=== PATIENT | female | born 1960 | race Caucasian/White ===

== ENCOUNTER 2022-07-08 11:30 | Outpatient (CLI) | payer BC, SELFPAY ==
--- NOTE | 2022-07-08 10:45 | DI.RAD_ITS ---
Exam(s) XR KNEE RT 3V AP,LAT,SHIRNI EXAM: XR KNEE RT 3V AP,LAT,SHIRIN CLINICAL HISTORY: RIGHT KNEE PAIN. TECHNIQUE: 2D digital imaging was performed of the right knee. Three views obtained. Merchant, AP an d lateral views were obtained. COMPARISON: No exams were available for comparison FINDINGS: BONES: No acute fracture is present. No bony destructive lesion is seen. JOINTS: The knee is normally aligned. No joint effusion is seen. SOFT TISSUE: Normal. IMPRESSION: Unremarkable radiographs of the right knee. DATA REPOSITORY: RADIATION DOSE DELIVERED:
== END 2022-07-08 11:31 | disposition home or self-care (01) ==
LOC: DIORS 11:30
PROVIDERS: PCP Physician Assistant Medical; Referring Provider Physician Assistant Medical; Visit Provider Student in an Organized Health Care Education/Training Program
DX: M25.561 Pain in right knee (principal)
CPT/HCPCS: 73562

== ENCOUNTER 2022-07-16 03:37 | Outpatient (CLI) | payer BC, SELFPAY ==
--- NOTE | 2022-07-16 07:30 | DI.MRI_ITS ---
Exam(s) MR LOWER JOINT RT WO EXAM: MR LOWER JOINT RT WO CLINICAL HISTORY: R KNEE INJURY,RT ACL TEAR,S83.511A,S83.411A. TECHNIQUE: Multiplanar multisequence MRI was performed. COMPARISON: CR XR KNEE RT 3V AP,LAT,SHIRIN from 07/08/2022 FINDINGS: BONES: Mild marrow edema seen in both the medial and lateral femoral condyles and the lateral proxima l tibia. There is a small depression in the lateral tibial plateau posteriorly with marrow edema robert picious for a mildly depressed tibial plateau fracture. JOINTS: Articular cartilage is unremarkable. No effusion is present. TENDONS: Extensor mechanism: Unremarkable. Medial retinaculum: There is thickening and hyperintense signal seen in the attachment site of the me dial retinaculum suspicious for tear. Lateral retinaculum: Unremarkable. Popliteus: Unremarkable. MUSCLES: Unremarkable. MENISCI: The medial meniscus is unremarkable. The lateral meniscus is unremarkable. SOFT TISSUES: There is edema seen in the soft tissues around the knee. There is a popliteal cyst pre sent. LIGAMENTS: Anterior Cruciate: There is an anterior cruciate ligament tear. Posterior Cruciate: There is also a posterior cruciate ligament tear. Medial Collateral:There is a tear of the proximal medial collateral ligament. Lateral Collateral: There is thickening of the proximal lateral collateral ligament suggesting a tear versus sprain. OTHER: IMPRESSION: 1. Findings suspicious for a small posterior lateral tibial plateau fracture with associated edema. 2. Contusions involving both the medial lateral femoral condyle and the proximal tibia. 3. Anterior and posterior cruciate ligament tears. 4. Tear of the proximal medial collateral ligament and the medial retinaculum. 5. Tear versus sprain of the proximal lateral collateral ligament. 6. Joint effusion, popliteal cyst and subcutaneous edema. DATA REPOSITORY:
== END 2022-07-16 03:57 ==
LOC: DI 03:37
PROVIDERS: PCP Physician Assistant Medical; Visit Provider Student in an Organized Health Care Education/Training Program
DX: S83.511A Sprain of anterior cruciate ligament of right knee, initial encounter (principal); S83.411A Sprain of medial collateral ligament of right knee, initial encounter; M71.21 Synovial cyst of popliteal space [Baker], right knee; S83.521A Sprain of posterior cruciate ligament of right knee, initial encounter; S83.421A Sprain of lateral collateral ligament of right knee, initial encounter; M25.461 Effusion, right knee; M21.861 Other specified acquired deformities of right lower leg
CPT/HCPCS: 73721

== ENCOUNTER 2022-08-07 07:14 | Day surgery (SDC) | payer BC, SELFPAY ==
[2022-08-07] VITALS (13 sets, daily range): BP systolic 97–121; BP diastolic 54–76; PULSE 70–86; RESP 7–18; TEMP 36.5–37.2; O2SAT 92–100; BMI 21.2
--- NOTE | 2022-08-07 07:10 | W.PM.DSUDISC ---
Date of service: 08/07/22 Time of Service: 17:00 Discharge Plan Discharge Details Attending Provider: Evelio Love Primary Care Provider: Kezia Pierson Home Meds and New Rx's Prescriptions: New aspirin 81 mg tablet,delayed release (DR/EC) 81 mg PO BID 30 Days Qty: 60 0RF naproxen 250 mg tablet 250 - 500 mg PO BID PRNQty: 40 0RF Rx Instructions: take with a meal oxycodone 5 mg tablet 5 - 10 mg PO Q4H MDD 30 mg PRN (Reason: moderate to severe pain) Qty: 18 0RF Continued rosuvastatin 5 mg tablet 5 mg PO HS venlafaxine 150 mg capsule,extended release 24hr 150 mg PO HS valacyclovir 500 mg tablet 500 mg PO HS cholecalciferol (vitamin D3) [Vitamin D3] 125 mcg (5,000 unit) Tablet 5,000 unit PO DAILY Discharge Instructions Additional Instructions: Surgery: Right knee arthroscopy with allograft ACL reconstruction, allograft PCL reconstruction, and proximal MCL repair Activity: Protected weightbearing in full extension-only for 6 weeks. Use crutches and brace as needed to protect and maintain knee straight. Restore full knee extension as soon as possible. Encourage quadriceps isometrics. Ankle pumps and wiggle toes to increase circulation. Flexion 0-90 degrees maximum for 6 weeks: seated passive flexion, avoid hamstring activation and posterior drawer force; prone active flexion okay. 120 degrees maximum flexion for 8 weeks. Low-resistance spin/bike after 10 weeks. Closed?chain strengthening at 12 weeks. A physical therapy prescription will be sent electronically to start in about 2 weeks Prescriptions: Aspirin 81 mg take 1 twice daily to prevent a blood clot for 30 days Naproxen 250 mg take 1-2 every 12 hours with a meal as needed for moderate pain Oxycodone 5 mg take 1-2 every 4-6 hours as needed for severe pain You may use [id number] Tylenol (acetaminophen) as needed for mild pain. These pain medications may be taken all at once or in different combinations as needed. Also, recommend Colace (docusate) as a stool softener as surgery and pain medicine cause constipation. You may try [id number] diphenhydramine (Benadryl) 25-50 mg nightly as a sleep aid Dressings: Leave dressing in place for 5 days. May then remove and leave open to air or cover incisions with Band-Aids. Leave the sticky Steri-Strips in place until they fall off or remove them after you shower. You will have to tighten the Velcro brace straps once the bulky dressing is removed. We are happy to do this with you if needed. May shower after 7 days. Follow-up: 10-[address] Love You may take off the leg compression stockings this evening at home. You may also leave them on a few days longer if you have a history of leg swelling or edema. Let us know right away if you develop any redness, drainage, fevers, chest pain, or trouble breathing. Do not drink alcohol or drive for at least 24 hours after anesthesia. Please call the office during business hours with any questions or concerns. DS: Diagnosis Discharge Diagnosis (1) Tear of medial collateral ligament of right knee: Status: Acute (2) Right ACL tear: Status: Acute (3) Rupture of posterior cruciate ligament of right knee: Status: Acute
--- NOTE | 2022-08-07 07:13 | W.PM.OP ---
Date of service: 08/07/22 Time of Service: 10:00 Operative Note Operative Note DATE OF PROCEDURE: 08/07/22 PRE-OP DIAGNOSIS: Right knee: 1. Complete midsubstance ACL rupture 2. Complete midsubstance PCL rupture 3. Complete proximal MCL tear PROCEDURE: Right knee: 1. ACL reconstruction, CPT #49824: Quadriceps allograft 2. PCL reconstruction, CPT #18378: GraftLink allograft 3. Proximal MCL repair, CPT #96727 SURGEON: Evelio Love MANUFACTURING ENGINEER CHIEF: Lissette Newman ANESTHESIA TYPE: Local By Surgeon, General LMA/ETT and Primary Nerve Block Refer to Anesthesia Record ESTIMATED BLOOD LOSS: 10 TOURNIQUET TIME: 0 COMPLICATIONS: None Patient was transported to: PACU Patient's condition: stable Implants: Arthrex TightRope II RT x2 and ABS with 8x12 mm cortical button x2 for ACL and PCL QuadLink pre-sutured quadriceps allograft: 10 x70 mm GraftLink pre-sutured allograft: 11 x90 mm Arthrex 5.5 mm SwiveLock for MCL Indications: Please see complete medical record for details. Findings: Exam under anesthesia: Full range of motion, stable valgus stress flexion extension; grossly positive Johanna, reverse Johanna, anterior drawer, and posterior drawer. Moderately positive valgus stress in flexion and extension. Arthroscopic findings: Complete, mid substance ACL and PCL ruptures. Significant tibial PCL and ACL remnants. Intact medial and lateral menisci. Mild medial femoral condyle medial tibial plateau diffuse chondromalacia. Procedure Description: In the operating room, general anesthesia was induced. The patient was positioned supine on the operating room table. All bony prominences were well-padded. Preoperative antibiotics were administered. The knee was prepped and draped in the usual sterile fashion. The correct patient, procedure, and side of the procedure were all verified prior to incision. Exam under anesthesia was performed. 15 cc of bupivacaine containing epinephrine was infiltrated about the planned anteromedial, anterolateral, lateral distal femoral, medial, and pretibial surgery sites. The standard high and tight anterolateral and anteromedial portals were established and a complete diagnostic arthroscopy was performed with relevant findings detailed above. A passport cannula was inserted in both the anteromedial and anterolateral portals. Under direct visualization through the notch, a posterior medial portal was established an additional passport cannula placed here. The allografts were sized, placed under moist vancomycin sponges, and dimensions noted for socket creation. The menisci and meniscal roots were intact. In the intercondylar area, the ACL and PCL remnants were removed leaving enough footprint on the femur and tibia to localize anatomic socket placement. Working through the intercondylar area from anterior to posterior knee ACL and PCL remnants were resected and significant caretaking while working more posteriorly with the knee in flexion exposing the posterior tibial plateau insertion of the PCL. Care was taken to avoid the meniscal roots. Alternating working and viewing from posterior medial and anteriorly through the notch the PCL footprint was exposed. The 30 degree scope was then changed for the 70 degree arthroscope for PCL tibial socket creation. The PCL tibial drill guide was then placed through the anterior medial portal centrally between the mamillary bodies and posteriorly appropriate hooking the posterior tibial plateau. Appropriate position was confirmed using lateral fluoroscopy. A distal pretibial small incision was made and the drill guide secured. The flip cutter was then drilled carefully exiting at the appropriate location and using the drill guide for protection of neurovascular structures posteriorly. Additional soft tissue was elevated and cleared around this tibial PCL socket to aid in visualization and future graft passage. A Yin was placed through the posterior medial portal to protect the posterior neurovascular structures. The flip cutter was deployed to 11 mm and retrograde drilling done to a depth of almost 45 mm. The reamings were removed with the mechanical shaver and a fiber stick used to place a #2 FiberWire shuttle stitch. The PCL femoral guide was then placed through the anteromedial portal and is centered over the appropriate location high and tight to the cartilage on the medial wall. A small proximal medial incision was made and the drill guide secured. The flip cutter was then drilled to the planned target, deployed to 11 mm, confirmed to be appropriate location, and retrograde drilling done just past 20mm. The fiber stick was then used to place an additional #2 FiberWire shuttle stitch. Attention was then turned to the ACL: The femoral 69 guide was then placed through the anterolateral portal carefully targeting the appropriate anatomic ACL origin. The outer 9 mm diameter of the guide was positioned anatomically with appropriate space between the proximal and posterior articular margins. On the lateral thigh, drill guide position and angle adjusted to about 60 degree angle to the longitudinal axis of the femur in the coronal plane and 20 degree angle to the trans-epicondylar axis in the axial plane to create the most optimal femoral socket. Knife and snap were used to open the skin and IT band and placed the drill guide on bone while maintaining appropriate position on the lateral wall. The tunnel length was noted to be used for marking and passing the femoral button. The flip cutter was then drilled to the appropriate location. The drill guide malleted 7 mm into the cortex. The remainder of the targeting guide removed. The FlipCutter was deployed to 10 mm and retrograde reaming done to a depth of 25mm. Bony debris was removed with the shaver. The flip cutter was then closed, withdrawn, and a FiberStick used to pass a #2 FiberWire shuttle stitch, which was withdrawn out the anterolateral portal. The tibial guide was then used to target the anatomic ACL insertion through the anteromedial portal. The drill angle adjusted to 55 degrees and a pretibial incision made taking care to keep a soft tissue and bony bridge between the tibial PCL and ACL tunnels. The drill guide was placed on bone, tunnel length noted, and the flip cutter drilled to the appropriate location. The drill guide malleted 7 mm into the cortex. The remainder of the targeting guide removed. The FlipCutter was deployed to 10mm and retrograde reaming done to a depth of 35mm. Bony debris was removed with the shaver. The flip cutter was then closed, withdrawn, and a FiberStick used to pass a #2 FiberWire shuttle stitch, which was withdrawn out the anteromedial portal. The mechanical shaver was used to remove bone debris as well as chamfer and remove soft tissue from the edges of the sockets. The allografts were then prepared on the back table. The TightRope II BTB and TightRope II ABS adjustable-loop cortical suspensory fixation implants were loaded on both the GraftLink presutured PCL allograft and the QuadLink pre-sutured quadriceps allograft. The grafts were marked at 20 mm from each end to ensure minimal tissue and sockets. On the ABS sides, the tensioning sutures were marked and a shuttle suture was added. The grafts were manually tensioned and the constructs did not demonstrate any elongation. The PCL allograft was then tightly compressed in a 10 mm graft tube and the ACL allograft tightly in a 9 mm graft tube. Starting with the PCL, the tibial and femoral shuttling sutures were withdrawn out the anterior medial portal. The ACL shuttle sutures were withdrawn out the anterior lateral portal. The anterior medial passport was removed, portal dilated, and care taken to ensure correct shuttle suture orientation and no tissue bridge. The PCL graft was brought over to the knee. The tibial suture shuttled under visualization through the notch, made the turn, and out the anterior leg. The shuttle link was removed and the graft was readily dunked into the posterior tibial socket with pressure through the ABS loop. The graft thoroughly drawn into the tibial socket to aid in femoral passage. The femoral sutures and button were then shuttled under direct visualization into the medial femoral socket. The button was flipped at the correct depth. Back pressure was maintained with the length and sutures out the portal and then with a probe on the graft while the tensioning sutures were used to deliver the other end of the graft into the socket. The graft was brought fully seated past 20 mm into the femoral socket. Provisionally tensioned on the side. The femoral button was maintained on the cortex throughout. An 8x12 mm ABS button was then loaded to the ABS loop and tension sutures used to bring the cortical button down to bone. The tibial side was then provisionally tensioned. Next, the remaining shuttle sutures were brought out the anterior medial portal. The ACL graft was brought over to the knee and the femoral sutures shuttled out the lateral thigh and advanced until the button was near the far cortex. Under arthroscopic visualization with the knee slightly hyperflexed, and the button was then passed and flipped on the far cortex. Counter traction was then maintained on the tibial side of the graft while it was carefully advanced into the knee and then about 20 mm into the femoral socket. The tibial sutures were then shuttled through the tibial tunnel and passing stitch removed while carefully noting the tensioning stitches. The graft was then dunked about 15 mm into the tibial socket. An 8x12 mm ABS button was then loaded to the ABS loop and tension sutures used to bring the cortical button down to bone. The graft was advanced and then provisionally tensioned on both the femoral and tibial sides. The knee was then cycled multiple times, tensioning rechecked, and provisional final tightening done with the knee in neutral rotation and avoiding any varus or valgus stress on the PCL with the knee in 90 degrees of flexion and a gentle anterior drawer and ACL with the knee in full extension with a gentle reverse Johanna. The ACL and PCL graft positions and tension were appropriate. There was no impingement in full extension or restricted deep flexion. Johanna and reverse Johanna exams were stable. Anterior and posterior drawers were stable. The tibial and femoral suture ends were then cut shorter. A new sterile Coban wrapped around the foot ankle and leg. New clean sterile drapes placed on the table for the next open part of the procedure. The surgical team all changed gloves again. The medial epicondyle was readily palpable and confirmed location with fluoroscopic assistance. A moderately sized longitudinal approach was made. The partially healing proximal MCL was readily identified and dissected from surrounding tissue creating a horseshoe of tissue for repair. The repair was planned just posterior proximal to the medial condyle, using fluoroscopic assistance, and carefully directing posteriorly to avoid crisscrossing the PCL femoral socket. The MCL was secured using a suture tape in a running alternating locking fashion from proximal to distal and back to proximal exiting at the repair site. The bone was rasped to optimize bone tendon healing. The undersized punch was used followed by the tap and the repair sutures loaded on a 5.5 mm SwiveLock anchor, which was fully deployed while appropriate tension was maintained on the MCL repair with the knee positioned in about 30 degrees of flexion with a gentle varus force. The double loaded additional repair sutures were then shuttled up through additional MCL tissue in a horizontal mattress fashion with one of the sutures anteriorly and the other posteriorly to augment the repair. The knee was then examined in extension and flexion with excellent endpoint to valgus stress with mild to moderate opening slightly more than physiologic. The repair was stable and fairly isometric. The surgical site was irrigated the longitudinal retinacular divide over the repair was closed using a suture tape in a running fashion. Deep and subcutaneous tissues irrigated with saline. The knee was then cycled multiple times, ACL and PCL tibial and femoral tensioning rechecked, and final tightening done similar as above with the PCL knee flexion and ACL knee extension. Femoral passing sutures were removed. Backup knots were then tied on both ACL and PCL sides and suture tails cut. The knee and all portals were copiously irrigated. 3-0 Monocryl was used to close the portals and small incisions in a buried interrupted fashion. 0 Vicryl interrupted used to close buried tissue medially followed by 2-0 Monocryl subcutaneous and 3-0 Monocryl running subcuticular. Mastisol, Steri-Strips, Xeroform, 4 x 4 gauze, and sterile soft roll was applied. The extremity was wrapped gently with an Zane bandage. Hinged knee brace locked in extension was appropriately fit. The patient awoke from anesthesia without complication and was transferred to the recovery room in a stable condition.
[2022-08-07] MEDS: Lactated Ringers 1,000 ML 30 ML IV (08:06)
--- NOTE | 2022-08-07 08:23 | W.ANESPRE ---
General Info Date of Service Date Performed: 08/07/22 Height: 5 ft 8 in Weight: 63.4 kg Body Mass Index (BMI): 21.2 Surgical Procedure: Operation Date: 08/07/22 10:10 Proposed Procedure Side Surgeon p Knee ACL Reconstruction/Posterior Cruciate Ligament Reconstruction(Allografts)/Open Medial Collateral Ligament Repair, any other indicated surgery Right Evelio Love MD Meds Allergies and Home Medications Allergies Allergy/AdvReac Type Severity Reaction Status Date / Time Penicillins Allergy Intermediate Skin Rash Verified 08/07/22 07:32 Home Medication Medication Instructions Recorded rosuvastatin 5 mg tablet 5 mg PO HS 07/08/22 valacyclovir 500 mg tablet 500 mg PO HS 07/08/22 venlafaxine 150 mg 150 mg PO HS 07/08/22 capsule,extended release 24 hr cholecalciferol (vitamin D3) 125 5,000 unit PO DAILY 08/05/22 mcg (5,000 unit) tablet (Vitamin D3) aspirin 81 mg tablet,delayed 81 mg PO BID Prevent blood clot 30 08/07/22 release days #60 tabs naproxen 250 mg tablet 250 - 500 mg PO BID PRN #40 tabs 08/07/22 oxycodone 5 mg tablet 5 - 10 mg PO Q4H PRN moderate to 08/07/22 severe pain #18 tabs Current Visit Medications: Current Medications Generic Name Dose Route Start Last Admin Trade Name Freq PRN Reason Stop Dose Admin Ringer's Solution 1,000 mls @ 30 mls/hr 08/07/22 06:00 IV 09/05/22 16:00 INFUSION LUANA Cefazolin Sodium/Dextrose 2 gm in 50 mls @ 100 mls/hr 08/07/22 06:00 Ancef Duplex IVPB 09/05/22 16:00 PREOP LUANA IV Miscellaneous Supplies 1 each 08/07/22 06:00 Iv Access IV 09/05/22 23:59 DIRECTED LUANA Oxycodone HCl 0 mg 08/07/22 07:09 Oxycodone 5 Mg Tab PO Q3H PRN PRN Pain Sodium Chloride 0 ml 08/07/22 06:00 Normal Saline Flush 10 Ml Syr IV 09/05/22 23:59 PRN PRN Sodium Chloride 0 ml 08/07/22 06:00 Normal Saline 10 Ml Vial IJ 09/05/22 23:59 DIRECTED PRN Sterile Water 0 ml 08/07/22 06:00 Water,Injection,Sterile 10 Ml Vial IJ 09/05/22 23:59 DIRECTED PRN PFSH Active Problems Active Problems: Problem Status Onset Code Tear of medial collateral ligament of right knee S83.411A Right ACL tear S83.511A Rupture of posterior cruciate ligament of right knee S83.521A Medical History Medical History Colonic polyp patient denies Diverticulosis patient denies Palpitations patient denies Pancreatic lesion patient denies Surgical History Surgical History History of Emergency 1996 Hx of colonoscopy Tobacco Smoking/Tobacco Use Status: Never Alcohol Alcohol Intake: current Alcohol intake frequency: a few times a week Alcohol type: beer and wine Substance Use Substance use: Never Substance use type: does not use Vital Signs and Lab Results Vital Signs Most Recent Vital Signs in EMR: Most Recent Vital Signs Temp Pulse Resp BP Pulse Ox 36.6 C 86 16 108/76 100 08/07/22 07:34 08/07/22 07:34 08/07/22 07:34 08/07/22 07:34 08/07/22 07:34 Lab Results Blood Type / Crossmatch: No Data to Display Complete Blood Count: No Data to Display Complete Metabolic Panel: No Data to Display Liver Function Panel: No Data to Display Coagulation Panel: No Data to Display Cardiac Panel: No Data to Display Arterial Blood Gas: No Data to Display Venous Blood Gas: No Data to Display Pancreas Panel: No Data to Display Thyroid Panel: No Data to Display Infectious Disease: No Data to Display Blood Cultures: No Data to Display Toxicology Panel: No Data to Display Anesthesia Assessment and Plan Anesthesia History Personal History: No History of Anesthesia Complications Family History: No Family History of Anesthesia Complications Exercise Tolerance Exercise Tolerance: Metabolic Equivalents>4 Pertinent Negatives Pertinent Negatives: No Symptoms of GERD, No Major Cardiovascular Symptoms or Complaints and No Major Pulmonary Symptoms or Complaints Cardiac & Pulmonary Exam Cardiac Exam: Normal S1/S2 Heart Sounds Pulmonary Exam: Clear Bilateral Breath Sounds Implantable Cardiac Device Does patient have a Pacemaker or an ICD?: No Airway Exam Known Difficult Airway: No Mallampati Class: 1 Mouth Opening: Normal (> 3cm) Thyromental Distance: Greater than 3 cm Neck Range of Motion: Full ROM Neck Circumference: Normal Teeth Condition: Normal Dentition ASA Classification ASA Score: ASA 2 Emergency Case?: No NPO Status NPO Status: NPO Clears >2 hours, Solids >8 hours Anesthesia Plan Resuscitation Status: Full Code Anesthesia Technique: General Anesthesia Airway Planned: Endotracheal Tube Pain Management: Surgeon and patient request nerve block Monitors Used: SedLine
--- NOTE | 2022-08-07 09:00 | DI.RAD_ITS ---
Exam(s) XR KNEE RT 2V AP,LAT EXAM: XR KNEE RT 2V AP,LAT CLINICAL HISTORY: acl and pcl repair. TECHNIQUE: 2D and realtime digital imaging was performed. COMPARISON: No exams were available for comparison FINDINGS: Please see procedure note for details. Fluoro time: 31seconds RADIATION DOSE DELIVERED: john Novak=1.5 mGy
[2022-08-07] MEDS: ceFAZolin 2 GM/50 ML BAG IVPB ×2 (10:08→14:05)
[2022-08-07] MEDS: Bupivacaine 0.25% Pres-Free W/EPI 30 ML VIAL (10:35)
--- NOTE | 2022-08-07 11:09 | W.ANESNERVE ---
Nerve Block Single Injection Procedure Date and Time Date Performed: 08/07/22 Procedure Start: 09:18 Location Where Procedure Performed Procedure Location: Day Surgery Unit Reason Performed: Postoperative Analgesia Requesting Provider: Evelio Love Timeout Performed Timeout Performed: Yes Monitoring Used ECG, Blood Pressure, SpO2 and See EMR for corresponding vital signs Sterility Sterility: Hand Hygiene, Surgical Cap, Surgical Mask, Sterile Gloves and Chlorhexidine Sedation Given During Procedure Sedation Given (Indicate Dose Given): Versed IV Dose:: 2mg Patient Mental Status Patient Mental Status: Sedate with meaningful communication Nerve Block 1st Nerve Block: Laterality: Right Block Type: iPACK Ultrasound Image Saved?: Yes Needle / Catheter Used: 100mm SonoPlex II Local Anesthetic Bolus (Indicate Dose Given): Lidocaine used for local infiltration of skin, Injected in 3-5ml increments after negative blood aspiration and Bupivacaine 0.375% Dose:: 12 mL Additives (Indicate Dose Given): None Ultrasound: Sterile probe cover and gel used Nerve Stimulator: Supplement to Ultrasound use Paresthesia: None Procedure Tolerated: No Complications and Patient tolerated well Procedure Outcome: Successful Procedure Comment: First area of local infiltration and needle placement with poor needle visualization, plan to withdraw needle and local additional area. Explained to patient and voiced no concern. Patient's present during procedure. Erika Johns CRNA assist with block placement. Patient tolerated well and plan to turn from lateral position to supine for femoral nerve block secondary. Performed By: Cris Kay
--- NOTE | 2022-08-07 11:14 | W.ANESNERVE ---
Nerve Block Single Injection Procedure Date and Time Date Performed: 08/07/22 Procedure Start: 09:28 Location Where Procedure Performed Procedure Location: Day Surgery Unit Reason Performed: Postoperative Analgesia Requesting Provider: Evelio Love Timeout Performed Timeout Performed: Yes Monitoring Used ECG, Blood Pressure and SpO2 Sterility Sterility: Hand Hygiene, Surgical Cap, Surgical Mask, Sterile Gloves and Chlorhexidine Sedation Given During Procedure Sedation Given (Indicate Dose Given): No Sedation given Patient Mental Status Patient Mental Status: Sedate with meaningful communication (Versed administered for first of two blocks) Nerve Block 1st Nerve Block: Laterality: Right Block Type: Femoral Ultrasound Image Saved?: Yes Needle / Catheter Used: 100mm SonoPlex II Local Anesthetic Bolus (Indicate Dose Given): Lidocaine used for local infiltration of skin, Injected in 3-5ml increments after negative blood aspiration and Bupivacaine 0.375% Dose:: 20 mL Additives (Indicate Dose Given): None Ultrasound: Sterile probe cover and gel used Nerve Stimulator: Supplement to Ultrasound use Paresthesia: None Post Procedure Pain score (0-10): 0 Procedure Tolerated: No Complications Procedure Outcome: Successful Performed By: Cris Kay
[2022-08-07] MEDS: EPINEPHrine 30 MG/30 ML VIAL (15:58)
--- NOTE | 2022-08-07 16:48 | W.ANESPOSTOP ---
Postoperative Evaluation Date, Time and Location Date Performed: 08/07/22 Time Performed: 16:48 Patient Location: PACU Vital Signs Most Recent Imported Vital Signs: Most Recent Vital Signs Temp Pulse Resp BP Pulse Ox 37.0 C 77 13 111/57 L 97 08/07/22 16:33 08/07/22 16:33 08/07/22 16:33 08/07/22 16:33 08/07/22 16:33 Pain Score Most Recent Pain Score: Most Recent Pain Score Pain Level 0 08/07/22 09:33 Assessment Mental Status: Arousable with meaningful communication Airway and Respiratory Function: Patent airway with normal (patient baseline) respiratory exam Cardiovascular Function: Hemodynamically Stable Hydration Status: Adequately Hydrated Nausea & Vomiting: No Nausea or Vomiting Pain: Pain is tolerable per patient Peripheral Nerve Block: Regional nerve block not resolved at time of post operative discharge
[2022-08-07] MEDS: oxyCODONE 5 MG TAB PO (17:19)
== END 2022-08-07 18:03 | disposition home or self-care (01) ==
PROVIDERS: PCP Physician Assistant Medical; Visit Provider Student in an Organized Health Care Education/Training Program
PROC: (CPT 29888; principal; 2022-08-07 10:00)
DX: S83.411A Sprain of medial collateral ligament of right knee, initial encounter (principal); S83.511A Sprain of anterior cruciate ligament of right knee, initial encounter; S83.521A Sprain of posterior cruciate ligament of right knee, initial encounter; X58.XXXA Exposure to other specified factors, initial encounter
CPT/HCPCS: 29888; 29889; 27405; 76942; 73560; J0131; J0690; J1100; J2250; J2405; J2704; J3475

== ENCOUNTER → 2023-01-06 01:21 | Outpatient (CLI) | payer BC, SELFPAY ==
--- NOTE | 2023-01-06 | DI.MAMMO_ITS ---
Exam(s) MAMMO SCREENING EXAM: MAMMO SCREENING CLINICAL HISTORY: SCREENING,Z12.31. TECHNIQUE: Bilateral full field digital CC and MLO mammographic images were obtained with 3D tomosyn thesis and utilizing computer aided detection (CAD). COMPARISON: 2017 through 2019 outside exams from [facility], [place], [place] FINDINGS: Masses/Architectural Distortion: None seen. Microcalcifications: No suspicious pleomorphic-type are seen. Skin Thickening/Nipple Retraction: None. IMPRESSION: 1. No significant interval change with no specific features of malignancy noted. 2. Unless there is more urgent need, annual screening mammography is recommended, as per [place] [employer] guidelines. BI-RADS Category 1-negative Breast Density - Category D - extremely dense Breast Density Category D: The mammogram demonstrates the patient's breast tissue is dense. Dense roz ast tissue is very common and is not abnormal but dense breast tissue can make it harder to find canc er on a mammogram. Also, dense breast tissue may increase their breast cancer risk. This information about the result of the mammogram report was provided to the patient to raise their awareness. Use th is report when you speak with the patient about their risks for breast cancer, which includes their f amily history. At that time, you may recommend for more screening tests (Ultrasound or MRI) as they m ight be useful based on their risk. A negative radiographic report should not delay biopsy if a dominant or clinically suspicious mass is present. Up to ten percent of cancers are not identified on mammography. A negative report may reinforce clinical impression. Adenosis and dense breasts may obscure an underlying neoplasm. False positive reports average 6 to 10%.
== END ==
PROVIDERS: PCP Physician Assistant Medical; Visit Provider Physician Assistant Medical
DX: Z12.31 Encounter for screening mammogram for malignant neoplasm of breast (principal)
CPT/HCPCS: 77063; 77067

== ENCOUNTER → 2023-03-17 02:14 | Outpatient (CLI) | payer BC, SELFPAY ==
--- NOTE | 2023-03-17 07:30 | DI.MRI_ITS ---
Exam(s) MR LOWER JOINT RT WO EXAM: MR LOWER JOINT RT WO CLINICAL HISTORY: f/u surgery,eval mcl healing,h/o rt acl tear and collateral ligament,ruptur. TECHNIQUE: Multiplanar multisequence MRI was performed. COMPARISON: CR XR KNEE RT 3V AP,LAT,SHIRIN from 07/08/2022 MR MR LOWER JOINT RT WO from 07/16/2022 FINDINGS: BONES: There is no fracture or contusion pattern. Patient is status post ACL, MCL and PCL repair. JOINTS: A minimal joint effusion is present. Articular cartilage: Patellofemoral joint: Minor cartilage irregularity. Medial femoral tibial joint: Articular cartilage is unremarkable. Lateral femoral tibial joint: Articular cartilage is unremarkable. TENDONS: Extensor mechanism: Unremarkable. Medial retinaculum: Thickening. Lateral retinaculum: Unremarkable. Popliteus: Intact. Small amount of fluid extends along the popliteus tendon and proximal muscle. MUSCLES: Unremarkable. MENISCI: The medial meniscus is unremarkable. The lateral meniscus is unremarkable. SOFT TISSUES: Subcutaneous skin edema. Small Vann's cyst, decreasing from prior. LIGAMENTS: Anterior Cruciate: Status post ACL repair, intact. Posterior Cruciate: Post ACL repair, intact. Medial Collateral:Status post MCL repair at the femoral attachment on which appears intact. Lateral Collateral: Unremarkable. IMPRESSION: Status post ACL, MCL and PCL repair which appear intact. No evidence of meniscal tear. Decreased size of popliteal cyst. DATA REPOSITORY:
== END ==
PROVIDERS: PCP Family Medicine; Visit Provider Student in an Organized Health Care Education/Training Program
DX: S83.411D Sprain of medial collateral ligament of right knee, subsequent encounter (principal); X58.XXXD Exposure to other specified factors, subsequent encounter
CPT/HCPCS: 73721

== ENCOUNTER → 2023-03-24 02:13 | Outpatient (CLI) | payer BC, SELFPAY ==
--- NOTE | 2023-03-24 | DI.DEXA_ITS ---
Exam(s) XR DEXA BONE DENSITY W/WO TYLOR EXAM: XR DEXA BONE DENSITY W/WO TYLOR CLINICAL HISTORY: SCREENING FOR OSTEOPOROSIS,Z13.820 TECHNIQUE: COMPARISON: No exams were available for comparison FINDINGS: Lateral Spine Image: Unremarkable. No compression deformities identified. Left hip: Total T-Score: -1.3 Total Z-Score: -0.3 T- and Z-scores: Findings are consistent with osteopenia. Lumbar Spine: Total T-Score: -1.9 Total Z-Score: -0.4 T- and Z-scores: Findings are consistent with osteopenia. There is osteoporosis in the L3 vertebral body with a T-score of -2.5. IMPRESSION: Osteoporosis is seen in the L3 vertebral body.
== END ==
PROVIDERS: PCP Family Medicine; Visit Provider Family Medicine
DX: Z13.820 Encounter for screening for osteoporosis (principal); M81.0 Age-related osteoporosis without current pathological fracture
CPT/HCPCS: 77080

== ENCOUNTER 2023-04-30 12:00 | Day surgery (SDC) | payer BC, SELFPAY ==
--- NOTE | 2023-04-29 16:03 | HPE_ITS ---
Assessment and Plan Assessment and plan (1) Screen for colon cancer: Status: Acute Assessment and plan: We reviewed the plan for screening colonoscopy today, as well as the risks and the benefits of the procedure. I think she has a good understanding of this, and we can proceed as planned. History of Present Illness History of Present Illness Chief Complaint: Screening colonoscopy Narrative: Jacki is 62 years old. She is here for her second screening colonoscopy. She has no family history of colon or rectal cancers. She was in her usual state of health up until a right anterior cruciate ligament artery rupture, which required surgical repair thus delaying her previously scheduled colonoscopy. [facility] All Active Problems Screen for colon cancer (Acute) Tear of medial collateral ligament of right knee (Acute 07/04/22) Right knee arthroscopy with allograft ACL reconstruction, allograft PCL reconstruction, and proximal MCL repair 08/07/22 Right ACL tear (Acute 07/04/22) Right knee arthroscopy with allograft ACL reconstruction, allograft PCL reconstruction, and proximal MCL repair 08/07/22 Rupture of posterior cruciate ligament of right knee (Acute 07/04/22) Right knee arthroscopy with allograft ACL reconstruction, allograft PCL reconstruction, and proximal MCL repair 08/07/22 Medical History Depressive disorder Leukopenia Hyperlipidemia Herpes labialis Diverticulosis patient denies Palpitations patient denies Colonic polyp patient denies Pancreatic lesion patient denies Surgical History Status post left breast lumpectomy (~02/10/22) H/O arthroscopic knee surgery (~04/26/22) Hx of colonoscopy (~2012) [facility]. Normal History of Emergency 1996 Social History Smoking/Tobacco Use Status: Never Smoking risk assessment performed?: Yes Alcohol Intake: current Alcohol Intake frequency: a few times a week Alcohol type: beer and wine Drug use: Never Substance use type: does not use Housing: house Current gender identity: female Do you feel safe at home: Yes Do you feel safe in your relationship?: Yes Meds Allergies and Home Medications Allergies Allergy/AdvReac Type Severity Reaction Status Date / Time Penicillins Allergy Intermediate Skin Rash Verified 04/30/23 12:20 Home Medications Medication Instructions Recorded Confirmed Type valacyclovir 500 mg tablet 500 mg PO HS 07/08/22 04/30/23 History venlafaxine 150 mg 150 mg PO HS 07/08/22 04/30/23 History capsule,extended release 24 hr cholecalciferol (vitamin D3) 125 5,000 unit PO DAILY 08/05/22 04/30/23 History mcg (5,000 unit) tablet (Vitamin D3) acetylcysteine 600 mg capsule (NAC) 1,200 mg PO DAILY 02/25/23 04/30/23 History rosuvastatin 10 mg tablet 10 mg PO DAILY 02/25/23 04/30/23 History Exam Const General: cooperative and not in acute distress Neck Neck: normal visual inspection, no lymphadenopathy and supple Resp Effort & Inspection: normal respiratory effort Auscultation: clear to auscultation bilaterally Cardio Jugular venous pressure: no JVD Rate: regular rate Rhythm: regular rhythm Heart Sounds: S1 normal and S2 normal GI Inspection: normal to inspection Palpation: soft, no guarding, no hernias and nontender Percussion: normal to percussion Auscultation: normal bowel sounds Neuro General: patient alert, patient awake and patient oriented x3 Psych Appearance: grossly normal
--- NOTE | 2023-04-29 16:05 | W.PM.DSUDISC ---
Date of service: 04/30/23 Time of Service: 13:44 Discharge Plan Disposition Patient Disposition: Home Condition: Good Discharge Details Reason For Visit: Screening colonoscopy Attending Provider: Morgan Kessler Primary Care Provider: Shital Vasquez Home Meds and New Rx's Prescriptions: Continued venlafaxine 150 mg capsule,extended release 24hr 150 mg PO HS valacyclovir 500 mg tablet 500 mg PO HS acetylcysteine [NAC] 600 mg capsule 1,200 mg PO DAILY rosuvastatin 10 mg tablet 10 mg PO DAILY cholecalciferol (vitamin D3) [Vitamin D3] 125 mcg (5,000 unit) Tablet 5,000 unit PO DAILY Discontinued polyethylene glycol 3350 17 gram/dose powder 238 g PO ONCE Qty: 238 0RF Rx Instructions: take per colonoscopy instructions bisacodyl [Dulcolax (bisacodyl)] 5 mg tablet,delayed release (DR/EC) 5 mg PO ONCE Qty: 4 0RF Rx Instructions: take per colonoscopy instructions Discharge Instructions Additional Instructions: Jacki, we are able to complete your colonoscopy today without any difficulty. Your prep was excellent. Everything looked normal. It did not see any signs of tumors or polyps. You should consider another screening colonoscopy in 10 years. 1. If tolerated, consume a soft, low fiber diet for 1-2 days. 2[address] Do not drive, drink alcohol, operate machinery, make critical decisions, or do activities that require coordination or balance for 24 hours. 3. Because air was put into your colon during the procedure, expelling air from your rectum (passing gas or farting) is normal. 4. You may not have a bowel movement for 1-3 days because of the colonoscopy prep. This is normal. 5. Go directly to the emergency room if you notice any of the following: Develop chills (warm to touch), or if you have a thermometer and your temperature is above 101 Difficulty breathing or difficultly swallowing Persistent vomiting Severe abdominal pain, other than gas cramps Severe chest pain Black, tarry stools Any bleeding ? exceeding one tablespoon 6. Call your physician if the site where your intravenous was started becomes red, swollen, painful, and warm to touch. 7. Your physician has reviewed your pre-procedure medications. Please continue to take those medications as previously ordered. You will be given specific information/education regarding any changes to your medications before leaving. Activity:: Activity as Tolerated Diet:: As Tolerated Discharge Orders Discharge Orders: Discharge Order (Routine); Ordered 04/29/23 Ordered By: Morgan Kessler DS: Diagnosis Discharge Diagnosis (1) Screen for colon cancer: Status: Acute Asessment and Plan: Negative screening colonoscopy
--- NOTE | 2023-04-29 16:11 | W.COLOREPORT ---
Date of service: 04/30/23 Time of Service: 13:45 Colonoscopy Report Date of procedure: 04/30/23 Pre-op diagnosis general: Screening colonoscopy Post-op diagnosis procedure note: other (Negative screening colonoscopy) Procedure: Colonoscopy Surgeon: Morgan Kessler Anesthesia Type: General:No Airway Estimated blood loss (mL): 0 Pathology: none sent Complications: None Disposition: same day Indications: Jacki is a 62-year-old woman who needs her second screening colonoscopy Prep: Miralax/Dulcolax Procedure Start Time: 13:22 Procedure End Time: 13:38 Retraction Time: 6 Findings: Screening colonoscopy Procedure Description: After the induction of monitored anesthetic care, and with the patient in left lateral decubitus position, I began by performing an external anorectal exam.? Perineum and skin were normal, as was the anal verge.? There was no evidence of external hemorrhoids.? Next, I performed a digital rectal exam.? I did appreciate any abnormal findings.? Next, I advanced a colonoscope into the rectal vault.? I performed retroflexion.? This appeared normal.? Using insufflation, I then advanced the colonoscope beyond the rectal folds and into the sigmoid colon before advancing towards the cecum.? The scope was noted to be in the cecum by identification of the ileocecal valve and appendiceal orifice.? I then began withdrawing the colonoscope using repeated irrigation as necessary for full evaluation of the colonic mucosa. ?Once the scope was withdrawn to the level of the rectum, great care was taken to examine portions of the rectal folds.? I did not see any signs of tumors, polyps, or any other worrisome pathology. Finally, the scope was withdrawn and the patient was brought to the same-day surgery recovery unit as the anesthetic wore off. ?The findings and instructions were shared with the patient prior to discharge. [place] Bowel Prep [place] Bowel Prep Right Colon: 3 Left Colon: 3 Transverse Colon: 3 Total Score: 9
[2023-04-30 12:10] VITALS: BP 123/68; PULSE 87; RESP 20; TEMP 36.4; O2SAT 100
[2023-04-30] MEDS: Lactated Ringers 1,000 ML 80 ML IV (13:00)
--- NOTE | 2023-04-30 13:00 | ANES.PREOP_ITS ---
General Info Date of Service Date Performed: 04/30/23 Height: 5 ft 8 in Weight: 62.7 kg Body Mass Index (BMI): 20.9 Surgical Procedure: Operation Date: 04/30/23 13:35 Proposed Procedure Side Surgeon p Colonoscopy Morgan Kessler MD Meds Allergies and Home Medications Allergies Allergy/AdvReac Type Severity Reaction Status Date / Time Penicillins Allergy Intermediate Skin Rash Verified 04/30/23 12:20 Home Medication Medication Instructions Recorded valacyclovir 500 mg tablet 500 mg PO HS 07/08/22 venlafaxine 150 mg 150 mg PO HS 07/08/22 capsule,extended release 24 hr cholecalciferol (vitamin D3) 125 5,000 unit PO DAILY 08/05/22 mcg (5,000 unit) tablet (Vitamin D3) acetylcysteine 600 mg capsule (NAC) 1,200 mg PO DAILY 02/25/23 rosuvastatin 10 mg tablet 10 mg PO DAILY 02/25/23 Current Visit Medications: Current Medications Generic Name Dose Route Start Last Admin Trade Name Freq PRN Reason Stop Dose Admin Hyoscyamine Sulfate 0.125 mg 04/29/23 16:11 Hyoscyamine 0.125 Mg Sl/Oral/Chew SL 05/29/23 16:10 DIRECTED PRN Ondansetron HCl 4 mg 04/29/23 16:11 Ondansetron 4 Mg/2 Ml Vial IVP 05/29/23 16:10 Q4H PRN PRN Nausea / Vomiting PFSH Active Problems Active Problems: Problem Status Onset Code Screen for colon cancer Z12.11 Tear of medial collateral ligament of right knee 07/04/22 S83.411A Right ACL tear 07/04/22 S83.511A Rupture of posterior cruciate ligament of right knee 07/04/22 S83.521A Medical History Medical History Depressive disorder Leukopenia Hyperlipidemia Herpes labialis Diverticulosis patient denies Palpitations patient denies Colonic polyp patient denies Pancreatic lesion patient denies Surgical History Surgical History Status post left breast lumpectomy (~02/10/22) H/O arthroscopic knee surgery (~04/26/22) [facility] Tobacco Smoking/Tobacco Use Status: Never Alcohol Alcohol Intake: current Alcohol intake frequency: a few times a week Alcohol type: beer and wine Substance Use Substance use: Never Substance use type: does not use Vital Signs and Lab Results Vital Signs Most Recent Vital Signs in EMR: Most Recent Vital Signs Temp Pulse Resp BP Pulse Ox 36.4 C L 87 20 123/68 100 04/30/23 12:10 04/30/23 12:10 04/30/23 12:10 04/30/23 12:10 04/30/23 12:10 Lab Results Blood Type / Crossmatch: No Data to Display Complete Blood Count: No Data to Display Complete Metabolic Panel: No Data to Display Liver Function Panel: No Data to Display Coagulation Panel: No Data to Display Cardiac Panel: No Data to Display Arterial Blood Gas: No Data to Display Venous Blood Gas: No Data to Display Pancreas Panel: No Data to Display Thyroid Panel: No Data to Display Infectious Disease: No Data to Display Blood Cultures: No Data to Display Toxicology Panel: No Data to Display Anesthesia Assessment and Plan Anesthesia History Personal History: No History of Anesthesia Complications Family History: No Family History of Anesthesia Complications Exercise Tolerance Exercise Tolerance: Metabolic Equivalents>4 Pertinent Negatives Pertinent Negatives: No Symptoms of GERD, No Major Cardiovascular Symptoms or Complaints and No Major Pulmonary Symptoms or Complaints Cardiac & Pulmonary Exam Cardiac Exam: Normal S1/S2 Heart Sounds Pulmonary Exam: Clear Bilateral Breath Sounds Implantable Cardiac Device Does patient have a Pacemaker or an ICD?: No Airway Exam Known Difficult Airway: No Mallampati Class: 1 Mouth Opening: Normal (> 3cm) Thyromental Distance: Greater than 3 cm Neck Range of Motion: Full ROM Neck Circumference: Normal Teeth Condition: Normal Dentition ASA Classification ASA Score: ASA 2 Emergency Case?: No NPO Status NPO Status: NPO Clears >2 hours, Solids >8 hours Anesthesia Plan Resuscitation Status: Full Code Anesthesia Technique: General Anesthesia Airway Planned: Natural Airway Monitors Used: Standard Monitors
[2023-04-30 13:03] VITALS: BMI 20.9
[2023-04-30 13:45] VITALS: BP 120/74; PULSE 68; RESP 16; TEMP 36.1; O2SAT 99
--- NOTE | 2023-04-30 13:58 | W.ANESPOSTOP ---
Postoperative Evaluation Date, Time and Location Date Performed: 04/30/23 Time Performed: 13:58 Patient Location: Day Surgery Unit Vital Signs Most Recent Imported Vital Signs: Most Recent Vital Signs Temp Pulse Resp BP Pulse Ox 36.1 C L 68 16 120/74 99 04/30/23 13:45 04/30/23 13:45 04/30/23 13:45 04/30/23 13:45 04/30/23 13:45 Pain Score Most Recent Pain Score: Most Recent Pain Score Pain Level 0 04/30/23 13:45 Assessment Mental Status: Awake (Alert & Oriented to Patient Baseline) Airway and Respiratory Function: Patent airway with normal (patient baseline) respiratory exam Cardiovascular Function: Hemodynamically Stable Hydration Status: Adequately Hydrated Nausea & Vomiting: No Nausea or Vomiting Pain: Pt. Denies Any Pain Peripheral Nerve Block: Patient did not receive a nerve block
[2023-04-30 14:15] VITALS: BP 116/77; PULSE 68; RESP 18; TEMP 36.1; O2SAT 100
== END 2023-04-30 14:30 | disposition home or self-care (01) ==
PROVIDERS: PCP Family Medicine; Visit Provider Surgery
PROC: 0DJD8ZZ Inspection of Lower Intestinal Tract, Via Natural or Artificial Opening Endoscopic (ICD-10-PCS; CPT 45378; principal; 2023-04-30 13:30)
DX: Z12.11 Encounter for screening for malignant neoplasm of colon (principal)
CPT/HCPCS: 45378; J2704

== ENCOUNTER 2023-09-09 08:58 | Outpatient (REF) | payer BC, SELFPAY ==
[2023-09-09 16:24] LABS: Abs Immature Grans 0.01 10^3/uL (0.0-0.06); Absolute Basophil Count 0.02 10^3/uL (0.0-0.2); Absolute Eosinophil Count 0.13 10^3/uL (0.0-0.7); Absolute Lymphocyte Count 1.38 10^3/uL (1.2-3.4); Absolute Monocyte Count 0.37 10^3/uL (0.1-0.8); Absolute Neutrophil Count 2.04 10^3/uL (1.2-6.7); Basophils % 0.5 %; Eosinophils % 3.3 %; HCT 38.7 % (36.0-46.0); HGB 12.8 g/dL (11.2-15.7); Immature Grans % 0.3 %; Lymphocytes % 34.9 %; MCHC 33.1 % (32.0-36.0); MCV 91 fL (80-95); MPV 10.6 fL (8.0-11.0); Monocytes % 9.4 %; Neutrophils % 51.6 %; Platelet Count 206 10^3/uL (130-400); RBC 4.27 10^6/uL (3.93-5.22); RDW 12.3 % (11.7-14.6); RDW-SD 40.4 fL; WBC 3.95 10^3/uL (4.4-10.8)
[2023-09-09 16:43] LABS: Anion Gap 8.8 mmol/L (3-11); BUN 18 mg/dL (7-18); CO2 29.2 mmol/L (21.0-32.0); CREATININE 0.9 mg/dL (0.55-1.02); Calcium 9.4 mg/dL (8.5-10.1); Calculated LDL 73 mg/dL (<100); Chloride 104 mmol/L (98-107); Cholesterol 161 mg/dL (<200); Estimated GFR 72.73 (mL/min/1.73m2); Glucose 95 mg/dL (74-106); HDL Cholesterol 75 mg/dL (40-60); Potassium 4.3 mmol/L (3.5-5.1); Sodium 142 mmol/L (136-145); Triglyceride 67 mg/dL (<150)
[2023-09-09 17:42] LABS: Vitamin D 25 Total 52.5 ng/mL (30-100)
== END 2023-09-09 08:59 | disposition home or self-care (01) ==
LOC: NCHCN 08:58
PROVIDERS: PCP Family Medicine; Visit Provider Family Medicine
DX: E78.5 Hyperlipidemia, unspecified (principal); M85.80 Other specified disorders of bone density and structure, unspecified site
CPT/HCPCS: 80048; 80061; 82306; 85025

== ENCOUNTER → 2023-10-15 13:17 | Outpatient (CLI) | payer BC, SELFPAY ==
--- NOTE | 2023-10-15 | DI.RAD_ITS ---
Exam(s) XR KNEE LT 3V AP,LAT,SHIRIN EXAM: XR KNEE LT 3V AP,LAT,SHIRIN CLINICAL HISTORY: INJURY LEFT LEG S89.92XA PAIN LEFT KNEE M25.562. TECHNIQUE: 2D digital imaging was performed. COMPARISON: CR XR KNEE RT 3V AP,LAT,SHIRIN from 07/08/2022 FINDINGS: 3 views No evidence of fracture or prominent joint effusion. No degenerative narrowing of the joint spaces. Bone density normal. At the articular surface of the medial femoral condyle there is a subtle lucency. This may indicate osteochondral defect at this level. IMPRESSION: Subtle subarticular lucency in the medial femoral condyle noted. This may represent a small osteocho ndral defect. If clinically indicated can be further studied with MRI for added sensitivity and spec ificity. No other radiographic findings in the knee. DATA REPOSITORY: RADIATION DOSE DELIVERED:
== END ==
PROVIDERS: PCP Family Medicine; Visit Provider Family Medicine
DX: M25.562 Pain in left knee (principal)
CPT/HCPCS: 73562

== ENCOUNTER 2024-03-01 12:08 | Outpatient (REF) | payer BC, SELFPAY ==
[2024-03-01 15:42] LABS: Abs Immature Grans 0.04 10^3/uL (0.0-0.06); Absolute Basophil Count 0.03 10^3/uL (0.0-0.2); Absolute Eosinophil Count 0.18 10^3/uL (0.0-0.7); Absolute Lymphocyte Count 1.36 10^3/uL (1.2-3.4); Absolute Monocyte Count 0.64 10^3/uL (0.1-0.8); Absolute Neutrophil Count 4.97 10^3/uL (1.2-6.7); Basophils % 0.4 %; Eosinophils % 2.5 %; HCT 37.8 % (36.0-46.0); HGB 12.5 g/dL (11.2-15.7); Immature Grans % 0.6 %; Lymphocytes % 18.8 %; MCH 29.8 pg (27.0-33.0); MCHC 33.1 % (32.0-36.0); MCV 90 fL (80-95); MPV 9.9 fL (8.0-11.0); Monocytes % 8.9 %; Neutrophils % 68.8 %; Platelet Count 297 10^3/uL (130-400); RDW 12.2 % (11.7-14.6); RDW-SD 39.8 fL; WBC 7.22 10^3/uL (4.4-10.8)
[2024-03-01 16:07] LABS: Mono Screening Negative (Negative)
[2024-03-01 16:12] LABS: ALT 17 U/L (14-59); AST 27 U/L (15-37); Albumin 3.8 g/dL (3.4-5.0); Alkaline Phosphatase 74 U/L (46-116); BUN 12 mg/dL (7-18); CREATININE 0.9 mg/dL (0.55-1.02); Calcium 9.6 mg/dL (8.5-10.1); Chloride 104 mmol/L (98-107); Estimated GFR 72.73 (mL/min/1.73m2); Glucose 94 mg/dL (74-106); Potassium 4.3 mmol/L (3.5-5.1); Sodium 143 mmol/L (136-145); Total Protein 8.1 g/dL (6.4-8.2)
[2024-03-03 10:29] LABS: EBNA IgG Positive (Negative); EBV Interpretation (See Note); VCA IgG Positive (Negative); VCA IgM Negative (Negative)
== END 2024-03-01 12:09 | disposition home or self-care (01) ==
LOC: LBN 12:08
PROVIDERS: PCP Family Medicine; Visit Provider Physician Assistant Medical
DX: J02.9 Acute pharyngitis, unspecified (principal)
CPT/HCPCS: 80053; 85025; 86308; 86664; 86665; 87070

== ENCOUNTER 2024-09-19 15:35 | Outpatient (REF) | payer OTHER, SELFPAY ==
[2024-09-19 15:52] LABS: Calculated LDL 176 mg/dL (<100); Cholesterol 264 mg/dL (<200); HDL Cholesterol 74 mg/dL (>or=50); Triglyceride 72 mg/dL (<150)
== END 2024-09-19 15:36 | disposition home or self-care (01) ==
LOC: NCHCN 15:35
PROVIDERS: PCP Family Medicine; Visit Provider Family Medicine
DX: E78.5 Hyperlipidemia, unspecified (principal)
CPT/HCPCS: 80061

== ENCOUNTER 2024-11-07 03:09 | Outpatient (CLI) | payer OTHER, SELFPAY ==
--- NOTE | 2024-11-07 | DI.MAMMO_ITS ---
Exam(s) MAMMO SCREENING EXAM: MAMMO SCREENING CLINICAL HISTORY: Screening, Z12.31 TECHNIQUE: Bilateral full field digital CC and MLO mammographic images were obtained with 3D tomosynthesis and utilizing computer aided detection (CAD). COMPARISON: Comparison is made with prior examinations. FINDINGS: Masses/Architectural Distortion: No suspicious masses or areas of architectural distortion are present. Microcalcifications: No suspicious pleomorphic-type are seen. Skin Thickening/Nipple Retraction: None. IMPRESSION: 1. No significant interval change with no specific features of malignancy noted. 2. Unless there is more urgent need, screening mammography is recommended, as per [place] [employer] guidelines. BI-RADS Category 1 - Negative Breast Density - Category D - The breast are extremely dense, which lowers the sensitivity of the mammography. Breast density Category C or D implies that the patient has dense breast tissue. Dense breast tissue can make it harder to find cancer on a mammogram. Dense breast tissue is also associated with an increased risk of breast cancer. This information about the result of the mammogram report was provided to the patient to raise their awareness. Use this report when you speak with the patient about their risks for breast cancer, which includes their family history. At that time, you may recommend additional screening tests (Ultrasound or MRI) as these tests may add significant information. A negative radiographic report should not delay biopsy if a dominant or clinically suspicious mass is present. Up to ten percent of cancers are not identified on mammography. A negative report may reinforce clinical impression. Adenosis and dense breasts may obscure an underlying neoplasm. False positive reports average 6 to 10%. Patient will receive a letter notifying them of these results.
== END 2024-11-07 03:29 ==
PROVIDERS: PCP Family Medicine; Visit Provider Family Medicine
DX: Z12.31 Encounter for screening mammogram for malignant neoplasm of breast (principal); R92.343 Mammographic extreme density, bilateral breasts
CPT/HCPCS: 77063; 77067